=== PATIENT | female | born 1995 | race Caucasian/White ===

== ENCOUNTER → 2020-05-15 12:40 | Outpatient (CLI) | payer OTHER, BC, SELFPAY ==
--- NOTE | ~2020-05-15 | US_ITS ---
EXAMINATION: US OB <= 14 weeks fetus DATE: 05/15/2020 13:06 INDICATION: First trimester dating TECHNIQUE: Real-time pelvic transabdominal and transvaginal ultrasound was performed. COMPARISON: None. FINDINGS: The uterus measures 9.5 x 5.4 x 6.9 cm. There is an intrauterine gestational sac. There is a 1.2 x 1 x 1 cm hypoechoic area adjacent to the gestational sac. A yolk sac is identified. he art motion is identified measuring 162 beats per minute (bpm) by M-mode Doppler. The crown rump length measures , which correlates with an estimated gestational age of 11 weeks and 1 day(s) (+/-) 7 day(s). The right ovary is not visualized however no right adnexal abnormality is seen. The left ovary measur es 3.7 x 3.3 x 3.8 cm. There is no free fluid in the pelvis. IMPRESSION: 1. Live intrauterine with an estimated gestational age of 11 weeks and 1 day(s) (+/-) 7 day (s) and an estimated delivery date of 12/03/2020. 2. Small subchorionic hematoma. Reviewed, dictated and finalized at location B. IMPRESSION: 1. Live intrauterine with an estimated gestational age of 11 weeks an d 1 day(s) (+/-) 7 day(s) and an estimated delivery date of 12/03/2020. 2. Small subchorionic hematoma.
== END ==
PROVIDERS: Visit Provider Obstetrics & Gynecology
DX: Z34.91 Encounter for supervision of normal pregnancy, unspecified, first trimester (principal); Z3A.11 11 weeks gestation of pregnancy; O36.8911 Maternal care for other specified fetal problems, first trimester, fetus 1
CPT/HCPCS: 76801

== ENCOUNTER → 2020-06-09 15:47 | Outpatient (CLI) | payer BC, SELFPAY ==
--- NOTE | ~2020-06-09 | US_ITS ---
EXAMINATION: US OB follow up DATE: 06/09/2020 16:17 INDICATION: Follow-up growth. TECHNIQUE: Real-time transabdominal obstetric ultrasound. FINDINGS: Comparison to 05/15/2020 There is a single living fetus in vertex presentation. The placenta is posterior. Placenta covers th e internal os. cardiac activity and movement is noted with a heart rate of 140 beats per minute. T he amniotic fluid volume is subjectively normal. The following biometric data were obtained: BPD: 30mm corresponds to gestational age 15 weeks 3 days. Head circumference: 116mm corresponds to gestational age 15 weeks 5 days. Abdominal circumference: 87mm corresponds to gestational age 15 weeks 0 days. Femur length: 16mm corresponds to gestational age 14 weeks 4 days. Estimated weight: 109grams +/- 16grams.] IMPRESSION: 1. Single living intrauterine in vertex presentation with an estimated gestational age of 14 weeks 5 days by inititial ultrasound. Appropriate interval growth. 2. Posterior placenta covering the internal cervical os. Recommend follow-up ultrasound to assess for placental migration.. Reviewed, dictated and finalized at location A. IMPRESSION: 1. Single living intrauterine in vertex presentation with an estimat ed gestational age of 14 weeks 5 days by inititial ultrasound. Appropriate int erval growth. 2. Posterior placenta covering the internal cervical os. Recommend follow-up ul trasound to assess for placental migration..
== END ==
PROVIDERS: Visit Provider Obstetrics & Gynecology
DX: Z34.91 Encounter for supervision of normal pregnancy, unspecified, first trimester (principal); Z3A.14 14 weeks gestation of pregnancy
CPT/HCPCS: 76816

== ENCOUNTER → 2021-02-25 08:01 | Outpatient (CLI) | payer BC, SELFPAY ==
--- NOTE | ~2021-02-25 | US_ITS ---
EXAMINATION: US right upper quadrant DATE: 02/25/2021 08:22 INDICATION: Right upper quadrant abdominal pain. Cholestasis in . TECHNIQUE: Multiple grayscale and Doppler ultrasound images of the abdomen were obtained. COMPARISON: None FINDINGS: Abdominal aorta is normal in caliber. Inferior vena cava is normal. The visualized portions of the head and body of the pancreas are normal. The liver is normal without focal lesion. No liver surface nodularity. There is normal flow in main portal vein. The gallbladder is normal in size and c ontains gallstones. No gallbladder wall thickening or sonographic Malik sign. The common duct is nor mal and measures 4 mm. Right kidney is normal in size. IMPRESSION: 1. Cholelithiasis. No evidence of acute cholecystitis. Reviewed, dictated and finalized at location B.
== END ==
PROVIDERS: PCP Physician Assistant; Visit Provider Physician Assistant
DX: Z87.59 Personal history of other complications of pregnancy, childbirth and the puerperium (principal); K80.20 Calculus of gallbladder without cholecystitis without obstruction
CPT/HCPCS: 76705

== ENCOUNTER → 2022-02-03 15:37 | Outpatient (CLI) | payer BC, SELFPAY ==
--- NOTE | ~2022-02-03 | US_ITS ---
EXAMINATION: US thyroid DATE: 02/03/2022 15:52 INDICATION: Localized swelling, mass, and lump, neck. TECHNIQUE: Multiple ultrasound images of the thyroid were obtained. COMPARISON: None. FINDINGS: The right thyroid lobe measures 5.3 x 1.6 x 1.6 cm. The left thyroid lobe measures 5.7 x 1.4 x 1.5 c m. In the right thyroid lobe, there is a 4 mm nodule. IMPRESSION: 1. Small thyroid nodule, likely not clinically significant. No follow-up is needed. Reviewed, dictated and finalized at location B. IMPRESSION: 1. Small thyroid nodule, likely not clinically significant. No follow-up is nee ded.
== END ==
PROVIDERS: PCP Physician Assistant; Visit Provider Physician Assistant
DX: R22.1 Localized swelling, mass and lump, neck (principal); E04.1 Nontoxic single thyroid nodule
CPT/HCPCS: 76536

== ENCOUNTER 2023-11-06 13:05 | Emergency (ER) | payer BC, SELFPAY ==
--- NOTE | ~2023-11-06 | XR_ITS ---
XR foot LT min 3V 11/06/2023 13:40 INDICATION: Left foot pain PROCEDURE: 4 views left foot COMPARISON: No prior studies for comparison. FINDINGS: Fracture, dislocation or subluxation is not identified. Lisfranc joint is intact. The soft tissues appear within normal limits. No foreign bodies are identified. IMPRESSION: 1: NO ACUTE BONE OR JOINT ABNORMALITY IDENTIFIED. Reviewed, dictated and finalized at location B. K RAISER
[2023-11-06 13:18] VITALS: BP 125/90; PULSE 87; RESP 16; TEMP 36.6; O2SAT 99
--- NOTE | 2023-11-06 13:23 | ED.LOWEXIN ---
HPI - Extremity Injury (Lower) General Chief Complaint: Extremity Injury, Lower Stated Complaint: Injured foot Time Seen by Provider: 11/06/23 13:23 Source: patient Mode of arrival: ambulatory Limitations: no limitations History of Present Illness HPI Narrative: 28-year-old female presents with complaint of left foot pain. Patient reports that she slipped ice this morning and twisted foot went up underneath her and she landed on top of it. Was able to get up on her own. Ambulatory with slight limp. Patient is 9 weeks . Would like x-ray to make sure she does not have fracture. All systems reviewed and negative except as noted above. Related Data Home Medications Medication Instructions Recorded Confirmed No Home Medications 11/06/23 11/06/23 Allergies Allergy/AdvReac Type Severity Reaction Status Date / Time No Known Allergies Allergy Unverified 12/14/21 13:47 Review of Systems Review of Systems: CONSTITUTIONAL: Denies fever, chills, or sweats. EYES: Denies visual changes, redness, or discharge. ENT: Denies rhinorrhea, congestion, sore throat, or otalgia. CARDIOVASCULAR: Denies chest pain, palpitations, or edema. RESPIRATORY: Denies cough or dyspnea. GASTROINTESTINAL: Denies abdominal pain, nausea, vomiting, or diarrhea. GENITOURINARY: Denies dysuria or hematuria. SKIN: Denies rash or itching. MUSCULOSKELETAL: Denies back pain. Reports pain and swelling to left foot. NEUROLOGIC: Denies headache, numbness, or weakness. PSYCHIATRIC: Denies anxiety or depression. All other systems reviewed are negative, except as documented in HPI. FORMERLY [facility] Past Medical History Medical History Anxiety Depression Gestational hypertension Surgical History Surgical History History of History of laparoscopic cholecystectomy 03/16/21 History of laparoscopy x2 2010 by Jose 2015 laser destruction of endometriosis by Dr Curry Family History Family History Father Diabetes mellitus Alcoholism Grandparent Diabetes mellitus paternal grandfather Hypertension maternal grandfather Depression maternal grandmother Son Hydrocephalus Social History Social History (Updated 12/14/21 @ 13:50 by CALLY Stone) Smoking status: Never smoker Alcohol intake: current Alcohol use details: occasional Substance use: never Substance use type: does not use Living arrangements: other Additional living arrangements comments: spouse Occupation/Education: occupation 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 There is no relevant family history pertinent to the presenting complaint. Exam Narrative: GENERAL: This is a well-nourished, well-developed patient, in no apparent distress. HEAD: normocephalic, atraumatic. EYES: PERRL. Sclera clear/white. Vision is grossly intact. EARS: External ears normal NOSE: External nose normal NECK: Neck supple, non-tender without lymphadenopathy, masses or thyromegaly. CARDIOVASCULAR: Regular rate and rhythm without murmurs, gallops, or rubs. RESPIRATORY: Clear to auscultation. Breath sounds equal bilaterally. No wheezes, rales, or rhonchi. SKIN: warm, Dry, intact with no suspicious lesions or rash, good texture and turgor. NEURO: awake, alert, and oriented to person, place and time. There were no obvious focal neurologic abnormalities. EXTREMITIES: swelling to lateral aspect L foot. no deformity. tender on palpation. ROM and distal NV intact. Course Course Level of Care: Express Care Visit Vital Si
== END 2023-11-06 14:01 | disposition home or self-care (01) ==
PROVIDERS: Emergency Provider Nurse Practitioner Family; PCP Physician Assistant
DX: S93.402A Sprain of unspecified ligament of left ankle, initial encounter (principal); W00.0XXA Fall on same level due to ice and snow, initial encounter
CPT/HCPCS: 73630; 99213; G0463